=== PATIENT | female | born 1975 | race Caucasian/White ===

== ENCOUNTER 2022-03-10 06:30 | Emergency (ER) | payer BC ==
[~2022-03-10] VITALS: Ht 172.7 cm; Wt 81.6 kg
[2022-03-10 06:36] VITALS: BP_SYST 142
--- NOTE | 2022-03-10 06:40 | NUR ---
Note marianne in ED - 03/10/22 at 0641 by [email or web address] Patient to bed to [facility] for evaluation. Side rails up. Report given to SHU ANDERSON.
[2022-03-10 06:51] VITALS: BP_SYST 153
--- NOTE | 2022-03-10 07:05 | NUR ---
Patient to ER bed 06 to gown for evaluation. Side rails up. Report given to PETR IRELAND.
[2022-03-10] MEDS ORDERED: CLIN-142 PO (07:27)
[2022-03-10] MEDS ORDERED: IBUP-1969 PO (07:27)
[2022-03-10] MEDS ORDERED: LIDOCAINE/EPI 1% 1:100000 20 ML VIAL INJ ONE (07:30)
[2022-03-10 08:15] VITALS: BP_SYST 153
--- NOTE | 2022-03-10 08:17 | NUR ---
Patient given written and verbal discharge instructions and verbalizes understanding. ER MD DR BROWNLEE discussed with patient the results and treatment provided. Patient in stable condition. ID arm band removed. Rx of CLINDAMYCIN given. Patient educated on pain management and to follow up with PMD. Pain Scale 2/10. Opportunity for questions provided and answered. Medication side effect fact sheet provided.
== END 2022-03-10 08:15 | disposition home or self-care (01) ==
LOC: SED 06:30
DX: L02.212 Cutaneous abscess of back [any part, except buttock and flank] (principal); L03.312 Cellulitis of back [any part except buttock and flank]; F17.200 Nicotine dependence, unspecified, uncomplicated; Z79.899 Other long term (current) drug therapy
CPT/HCPCS: 99283